=== PATIENT | female | born 2000 | race African-American/Black ===

== ENCOUNTER 2023-06-04 15:19 | Emergency (ER) | payer OTHER, SELFPAY ==
[2023-06-04 15:20] VITALS: BP 140/84; PULSE 60; RESP 18; TEMP 36.6; O2SAT 100; BMI 34.0
--- NOTE | 2023-06-04 15:28 | DI.US.S_ITS ---
PROCEDURE: US PELVIC COMPLETE INDICATIONS: PELVIC CRAMPING TECHNIQUE: Real-time scanning was performed of the pelvic organs, with image documentation. Additional endovaginal scanning was necessary due to incomplete visualization of the adnexal and endometrial structures by transabdominal scanning. COMPARISON: None. FINDINGS: Uterus: Uterus is anteverted and normal in size at 7.8 x 4.0 x 4.9 cm. The myometrium is homogeneous. The endometrium measures 9 mm combined thickness. Ovaries: The right ovary measures 2.1 x 1.6 x 2.7 cm, with a calculated ovarian volume of 4.7 cc. The left ovary measures 2.5 x 1.7 x 2.4 cm, with a calculated ovarian volume of 5.6 cc. The ovaries have a normal sonographic appearance. Less than 12 follicles can be seen in each ovary. No adnexal masses are seen. Other: No pathologic free abdominal or pelvic fluid. IMPRESSION: Pelvic ultrasound without acute sonographic abnormalities. We strive to produce accurate, complete, and clear reports of imaging services. To assist us in improving patient care, this report was composed using standard report templates and voice recognition software. Therefore, it may contain abnormal punctuation, insertions and/or omissions. Occasional wrong-word or sound-alike substitutions may occur. Though we review the report and make efforts to correct it, we do recommend that the report be read carefully in proper context to recognize any text inaccuracies. Dictated by: Marty Oliva M.D. on 06/04/2023 at 17:02 Approved by: Marty Oliva M.D. on 06/04/2023 at 17:04
--- NOTE | 2023-06-04 15:30 | ED_ITS ---
HPI - Abdominal Pain General Chief Complaint: Abdominal Pain Stated Complaint: Menstrual Cramps T-3 Time Seen by Provider: 06/04/23 15:27 Source: patient Mode of arrival: Ambulatory History of Present Illness HPI narrative: This is a 22-year-old female presenting to the emergency department due to worsening menstrual cramping. Patient states that her cramping is more severe this time and reports increased blood than she usually has during her periods. Patient states that she is somewhat already used to heavy periods. She is unable to placed on control as they made them worse. She denies any abnormal vaginal discharge. Related Data Allergies Allergy/AdvReac Type Severity Reaction Status Date / Time amoxicillin Allergy Hives Verified 06/04/23 15:20 Review of Systems Review of Systems Narrative: GENERAL: Denies chills, fatigue, malaise, fever, sweats. HEENT: Denies sinus pain, ear pain, sore throat, difficulty swallowing, dizziness. RESPIRATORY: Denies dyspnea, cough, wheezing, hemoptysis, sputum. CARDIOVASCULAR: Denies chest pain, palpitations, orthopnea, edema, GASTROINTESTINAL: Denies nausea, vomiting, abdominal pain, diarrhea, constipation, melena. : Pelvic cramping and vaginal bleeding MUSCULOSKELETAL: denies weakness, joint pain, or bony pain SKIN: Denies rash, skin lesions, or other NEUROLOGIC: Denies weakness, headache, numbness, change in speech, confusion, seizures, incoordination. PSYCHIATRIC: No concerning psychosocial issues. 12 point review of systems is negative except for those stated above Patient History Social History Smoking Status: Never smoker Smoking Status: Never smoker Substance Use Type: does not use Exam Narrative Exam Narrative: GENERAL: Well-developed patient, in mild distress. HEAD: Atraumatic. Normocephalic. EYES: Pupils equal round and reactive. Extraocular motions intact. No scleral icterus. No injection or drainage. ENT: Nose without bleeding, purulent drainage. Throat without erythema, tonsillar hypertrophy or exudate. Airway patent. NECK: Trachea midline. Non tender CARDIOVASCULAR: Regular rate and rhythm without murmurs, gallops, or rubs. RESPIRATORY: Clear to auscultation. Breath sounds equal bilaterally. No wheezes, rales, or rhonchi. GASTROINTESTINAL: Abdomen soft, non-tender, nondistended. EXTREMITIES: No edema or joint tenderness. BACK: Nontender without deformity or crepitance. No flank tenderness. NEURO: AOx3. SKIN: No rash or erythema of visible areas Initial Vital Signs Initial Vital Signs: Vital Signs Temperature 97.8 F 06/04/23 15:20 Pulse Rate 60 06/04/23 15:20 Respiratory Rate 18 06/04/23 15:20 Blood Pressure 140/84 06/04/23 15:20 Pulse Oximetry 100 06/04/23 15:20 Oxygen Delivery Method Room Air 06/04/23 15:20 Course Orders Ordered: ED Orders 06/04/23 15:28 US pelvic complete Stat 06/04/23 15:40 Test Urine Stat UA Complete [Urinalysis and Microscopic] Stat Urine Culture Stat Discontinued Medications Acetaminophen (Acetaminophen 325 Mg Tablet) 975 mg PO NOW ONE Stop: 06/04/23 15:31 Last Admin: 06/04/23 15:34 Dose: 975 mg Documented By: COLT Vital Signs Vital signs: Vital Signs - 8 hr 06/04/23 15:20 06/04/23 17:32 Temperature 97.8 F Pulse Rate 60 66 Respiratory Rate 18 17 Blood Pressure 140/84 132/81 Pulse Oximetry 100 100 Oxygen Delivery Method Room Air Room Air MDM - Abdominal Pain Lab Data Labs: Lab Results 06/04/23 06/04/23 Range/Units 15:40 15:40 Urine Color Red Urine Appearance Turbid Urine pH TNP Ur Specific [place] TNP Urine Protein TNP Urine Glucose (UA) TNP Urine Ketones TNP Urine Occult Blood TNP Urine Nitrate TNP Urine Bilirubin TNP Urine Urobilinogen TNP Ur Leukocyte Esterase TNP Urine RBC >100/hpf H (0-5/HPF) Urine WBC 1-5/hpf (0-5/HPF) Ur Squamous Epith Cells 1-5 /hpf (0-5/HPF) Urine Bacteria Moderate (10-30) H (None) Ur Culture Indicated? Specimen cultured Urine Test Negative (Negative) Imaging Data US - SALES REPRESENTATIVE EDUCATION COURSES: Radiologist's Impression: [address] [address] Ultrasound Report Signed Patient: Lorenzo Brown MR#: [id number] : 2000 Acct:[id number] Age/Sex: 22 / F Date of Service: 06/04/23 Loc: ED Accession Number: [id number] ?? Procedure: US pelvic complete Ordering Provider: Lobo Hanley P.A-C PROCEDURE:? US PELVIC COMPLETE ? INDICATIONS:? PELVIC CRAMPING ? TECHNIQUE:? Real-time scanning was performed of the pelvic organs, with image documentation.? Additional endovaginal scanning was necessary due to incomplete visualization of the adnexal and endometrial structures by transabdominal scanning.? ? COMPARISON:? None. ? FINDINGS:? ?? Uterus:? Uterus is anteverted and normal in size at 7.8 x 4.0 x 4.9 cm. The myometrium is homogeneous. ? The endometrium measures 9 mm combined thickness. ? Ovaries:? The right ovary measures 2.1 x 1.6 x 2.7 cm, with a calculated ovarian volume of 4.7 cc. The left ovary measures 2.5 x 1.7 x 2.4 cm, with a calculated ovarian volume of 5.6 cc. The ovaries have a normal sonographic appearance. Less than 12 follicles can be seen in each ovary.? No adnexal masses are seen. ? Other:? No pathologic free abdominal or pelvic fluid. ? ? IMPRESSION:? Pelvic ultrasound without acute sonographic abnormalities. ? ? We strive to produce accurate, complete, and clear reports of imaging services. To assist us in improving patient care, this report was composed using standard report templates and voice recognition software. Therefore, it may contain abnormal punctuation, insertions and/or omissions. Occasional wrong-word or sound-alike substitutions may occur. Though we review the report and make efforts to correct it, we do recommend that the report be read carefully in proper context to recognize any text inaccuracies. ? ? Dictated by: Marty Oliva M.D. on 06/04/2023 at 17:02 ? ? Approved by: Marty Oliva M.D. on 06/04/2023 at 17:04 ? MDM Narrative Medical decision making narrative: MDM * differential diagnosis includes but not limited to ovarian torsion, ectopic , menstrual period, menstrual cramping * Prior records reviewed: Patient was seen at [facility] a month ago for similar complaints. Longstanding history of bad menstrual cramps. Was eventually discharged with instructions for symptomatic management and the need for gynecology follow up. Patient was also seen 7 months ago for similar complaints. Has undergone exploratory laparotomy and no cause found for these symptoms. No evidence of endometriosis. Full workup done during this visit and no findings found. * My lab interpretation: UA negative, test negative. * My imaging interpretation: Ultrasound unremarkable. * Clinical Decision Rules/Scores evaluated: None * Independent discussions with: None ED Course: This is a 22-year-old female presents emergency department due to worsening menstrual cramping as well as vaginal bleeding which she states is abnormal for her. Pelvic ultrasound was ordered which was unremarkable. Lab work showed no evidence of UTI and negative test. Suspect this is routine. Although may be slightly worse than usual. Patient had an extensive workup as noted in the record review above. Recommend patient established with the canceling and cutting control clerk for management of her symptoms. Shared Decision Making: Discussed plan with patient who is comfortable with the plan. Social Considerations: None Disposition: Discharged home Discharge Plan Departure Patient Disposition: Home Clinical Impression: Menstrual cramp Activity Restrictions/Additional Instructions: Thank you for coming to the [facility] Emergency Department today. Your pelvic ultrasound was unremarkable. There is no evidence of any kind of abnormalities in your ovaries or uterus. Your urine showed no evidence of UTI test was negative. Please follow up with the primary care provider for referral to throw out clerk to help manage her symptoms. I hope you feel better soon. Please follow up with your primary care provider within a week. If you do not have a primary care provider please contact the [facility] Resource line at [phone]. They will ask some questions about your medical history and help you get set up with a provider in the community. Stand Alone Forms: Patient Portal/API
[2023-06-04] MEDS: ACETAMINOPHEN 325 MG TABLET 975 MG PO (15:34)
[2023-06-04 15:56] LABS: Pregnancy Test Urine Negative (Negative)
[2023-06-04 16:01] LABS: Appearance Urine UA TURBID; Color Urine UA RED
[2023-06-04 16:08] LABS: Bacteria Urine Moderate (10-30); Culture Indicated Urine Specimen Cultured; RBC Urine >100/HPF (0-5/HPF); Squamous Epithelial Cell Urine 1-5 /HPF (0-5/HPF); WBC Urine 1-5/HPF (0-5/HPF)
[2023-06-04 17:32] VITALS: BP 132/81; PULSE 66; RESP 17; O2SAT 100
== END 2023-06-04 17:33 | disposition home or self-care (01) ==
PROVIDERS: Emergency Provider Physician Assistant Medical
DX: R10.9 Unspecified abdominal pain (principal)
CPT/HCPCS: 76830; 76856; 81001; 81025; 87086; 93975; 99283